=== PATIENT | female | born 1995 | race Caucasian/White ===

== ENCOUNTER 2017-08-15 23:54 | Emergency (ER) | payer OTHER, MEDICAID ==
[~2017-08-15] VITALS: Ht 170.2 cm; Wt 63.5 kg
[~2017-08-15 23:54] MED LIST: ANASPAZ0.125 MG SL; CELEXA20 MG PO; CEPHALEXIN 500500 M3 PO; IBUPROFEN 800800 M1 PO; NOHOMEMEDICATIONS
[2017-08-16] MEDS ORDERED: BUSPIRONE HCL10 MG PO (00:03)
[2017-08-16 00:20] LABS: URINE BLOOD NEGATIVE (Negative); URINE CLARITY CLEAR; URINE COLOR DARK YELLOW; URINE GLUCOSE-RANDOM NEGATIVE (Negative); URINE KETONES TRACE (Negative); URINE LEUKOCYTES-REFLEX NEGATIVE (Negative); URINE PROTEIN TRACE (Negative); URINE SPECIFIC GRAVITY >= 1.030 (1.005-1.030)
[2017-08-16 00:28] LABS: ICTOTEST (BILI CONFIRMATORY) Negative (Negative); URINE BILIRUBIN 2+ (Negative); URINE NITRITE-REFLEX POSITIVE (Negative)
[2017-08-16 00:33] LABS: ABSOLUTE EOSINOPHILS 0.1 thou/uL (0.0-0.7); ABSOLUTE LYMPHOCYTES 2.3 thou/uL (0.8-5.3); ABSOLUTE MONOCYTES 0.7 thou/uL (0.0-1.2); ABSOLUTE NEUTROPHILS 11.7 thou/uL (1.6-8.1); BASOPHILS 0.1 %; EOSINOPHILS 0.3 %; HEMATOCRIT 41.5 % (37.0-47.0); HEMOGLOBIN 14.2 gm/dL (12.0-15.0); LYMPHOCYTES 15.8 %; MCH 30.6 pg (26.0-34.0); MCHC 34.1 g/dL (28.0-37.0); MCV 89.8 fL (80.0-100.0); MPV 11.2 fl. (7.2-11.1); NUCLEATED RBCS 0 /100WBC; PLATELET COUNT* 139 thou/uL (150-400); POLYS 78.8 %; RBC 4.62 mil/uL (4.20-5.00); WBC 14.8 thou/uL (4.0-11.0)
[2017-08-16 00:33] LABS: CASTS None Seen /LPF (None Seen); CRYSTALS None Seen /LPF (None Seen); MUCUS None Seen strn/LPF (None Seen); SQUAMOUS >10 Many /LPF (0-3)
[2017-08-16 00:34] LABS: BACTERIA-REFLEX 1-9 Few /HPF (None Seen); URINE WBC-REFLEX 0-5 Rare /HPF (0-5)
[2017-08-16 00:35] LABS: URINE RBC None Seen /HPF (0-2)
[2017-08-16 00:39] LABS: CALCIUM 9.2 mg/dL (8.5-10.1); CREATININE 0.8 mg/dL (0.6-1.3); POTASSIUM 3.4 mmol/L (3.5-5.1)
[2017-08-16 00:43] LABS: ALBUMIN 3.9 g/dL (3.4-5.0); TOTAL BILIRUBIN 0.4 mg/dL (<0.1-1.0); TOTAL PROTEIN 7.2 g/dL (6.4-8.2)
[2017-08-16] MEDS ORDERED: ZOFRAN4 MG PO (02:59)
[2017-08-16] MEDS ORDERED: HYDROCODON-ACE1 EAC7 PO (02:59)
[2017-08-16 03:10] VITALS: BP 131/62
== END 2017-08-16 03:11 | disposition home or self-care (01) ==
LOC: M.ERS 23:54
PROVIDERS: Emergency Medicine
DX: K52.9 Noninfective gastroenteritis and colitis, unspecified (principal); F41.9 Anxiety disorder, unspecified; Z88.2 Allergy status to sulfonamides

== ENCOUNTER 2017-08-22 14:46 | Inpatient (IN) | payer OTHER, MEDICAID ==
[~2017-08-22] VITALS: Ht 162.6 cm; Wt 58.4 kg
[~2017-08-22 14:46] MED LIST changes: +BUSPIRONE HCL10 MG PO; +HYDROCODON-ACE1 EAC7 PO; +ZOFRAN4 MG PO
[2017-08-22 16:24] VITALS: BP 116/66
[2017-08-22 16:27] LABS: ABSOLUTE LYMPHOCYTES 1.7 thou/uL (0.8-5.3); ABSOLUTE MONOCYTES 0.5 thou/uL (0.0-1.2); ABSOLUTE NEUTROPHILS 6.9 thou/uL (1.6-8.1); BASOPHILS 0.3 %; EOSINOPHILS 0.1 %; HEMATOCRIT 41.3 % (37.0-47.0); LYMPHOCYTES 18.8 %; MCH 30.7 pg (26.0-34.0); MCV 90.2 fL (80.0-100.0); MONOCYTES 5.8 %; MPV 10.5 fl. (7.2-11.1); NUCLEATED RBCS 0 /100WBC; PLATELET COUNT* 189 thou/uL (150-400); RBC 4.58 mil/uL (4.20-5.00); WBC 9.2 thou/uL (4.0-11.0)
[2017-08-22 16:35] LABS: ALBUMIN 4.2 g/dL (3.4-5.0); CALCIUM 8.8 mg/dL (8.5-10.1); CREATININE 0.8 mg/dL (0.6-1.3); POTASSIUM 3.9 mmol/L (3.5-5.1); TOTAL BILIRUBIN 0.6 mg/dL (<0.1-1.0); TOTAL PROTEIN 7.7 g/dL (6.4-8.2)
[2017-08-22 17:28] LABS: URINE BLOOD NEGATIVE (Negative); URINE CLARITY CLEAR; URINE COLOR YELLOW; URINE GLUCOSE-RANDOM NEGATIVE (Negative); URINE LEUKOCYTES-REFLEX NEGATIVE (Negative); URINE NITRITE-REFLEX NEGATIVE (Negative); URINE PROTEIN NEGATIVE (Negative); URINE SPECIFIC GRAVITY >= 1.030 (1.005-1.030); URINE UROBILINOGEN 0.2 E.U./dl (0.2-1.0)
[2017-08-22 17:36] LABS: URINE BILIRUBIN 1+ (Negative); URINE KETONES 3+ (Negative)
[2017-08-22 17:38] LABS: ICTOTEST (BILI CONFIRMATORY) Negative (Negative)
[2017-08-22] MEDS ORDERED: CULTURELLE1 EACH PO (19:16)
[2017-08-23 00:01] VITALS: BP 120/66
[2017-08-23 08:00] VITALS: BP 110/66; BP 120/66
[2017-08-23 16:22] VITALS: BP 111/82
[2017-08-24] VITALS: BP 113/63
[2017-08-24] MEDS ORDERED: BENTYL 10 MG CA10 M1 PO (09:50)
[2017-08-24] MEDS ORDERED: AMITRIPTYLINE H25 M2 PO (09:50)
[2017-08-24] MEDS ORDERED: MIRALAX17 GM PO (09:51)
[2017-08-24 12:01] VITALS: BP 113/63
--- NOTE | 2017-08-28 16:18 | PROC ---
[address] [address] PROCEDURE REPORT Name: WILL MATIAS Room: [address] IN M.R.#: [id number] Admission: 08/22/17 Attend Phys: Negro Sanchez MD Discharge: 08/24/17 Date of : 95 Report #: [id number] THIS REPORT FOR: //name// Procedure Note Description of Procedure: Colonoscopy Report: Erythematous mucosa in the descending colon. Biopsied. The rectum, transverse colon, ascending colon and cecum are normal. Biopsied. Non bleeding internal hemorrmoids. The examination was otherwise normal. Plan: Await pathology results. Miralax 1 capful (17 grams) in 8 ounces of water daily. Use Bentyl (dicyclomine) 20 mg PO BID 30 min AC. Resume regular diet. <ELECTRONICALLY SIGNED> By: Jossie Hillman MD 08/28/17 1618 D: 1617Jossie Hillman MD /JAMEE
--- NOTE | 2017-08-30 16:59 | CON ---
[address] [address] CONSULTATION Name: POLLY,WILL JIMMY Room: [address] IN M.R.#: [id number] Admission: 08/22/17 Attend Phys: Negro Sanchez MD Discharge: 08/24/17 Date of : 95 Report #: [id number] THIS REPORT FOR: //name// CC: Negro Lucio [facility] DICTATED BY: Sia Yap BLANKET WINDER OPERATOR DATE OF SERVICE: 08/22/2017 Please note at the time of this dictation, the patient was seen and physically examined by myself. REASON FOR CONSULTATION: Abdominal pain. HISTORY OF PRESENT ILLNESS: This is a 22-year-old female who was seen in the office today by myself with chief complaint of having abdominal pain and issues with constipation and diarrhea. The patient had previously been seen in the ER on 08/15, secondary to severe abdominal pain. She underwent a CT scan at that time that showed obstipation with a large amount of stool in her colon with some wall thickening noted. At that time, her white count was 14.8, hemoglobin was 14.2, platelet was 139. The patient was then sent home after she received fluids and some pain medication at that time. She states she has continued to not feel well since that time. The patient was last seen in our office in 2014, for similar issues with abdominal pain and diarrhea. She was advised to have a colonoscopy, but she refused any endoscopy studies at that time secondary to cost and she just want to try a probiotic and due to the fact that she was , she was unable to take any Bentyl. The patient did see a psychiatrist for her severe anxiety, which also contributes to her worsening of her abdominal pain. While the patient was seen in the office today, she was extremely tearful and very emotional in discussing her abdominal pain that when she has the abdominal pain, she is traumatized by the abdominal pain to the point that she has had thoughts of hurting herself knowing that she would not do so because she has a daughter that is 4 years old that was with her there in the office. She was extremely emotional and crying because she is afraid to have more abdominal pain and that it hurts so bad. The patient recently saw her psychiatrist, was started on a new medication, buspirone 5 mg daily, which she just recently started. Prior to her visit, she had been taking Imodium on a regular basis, which she states helps with her cramping and diarrhea because she was too afraid to ever have any cramping. She states she has not had much of an appetite and just has not been eating, but her weight has been stable at this time. She denies any fever and chills prior to admission and no fever is noted from our office either. ALLERGIES: [place] [address] CONSULTATION Name: WILL MATIAS Room: [address] IN ..#: [id number] Admission: 08/22/17 Attend Phys: Negro Sanchez MD Discharge: 08/24/17 Date of : 95 Report #: [id number] MEDICATIONS FROM HOME: Include her buspirone. PAST MEDICAL HISTORY: Severe anxiety and questionable irritable bowel syndrome, mixed constipation and diarrhea. PAST SURGICAL HISTORY: Negative. SOCIAL HISTORY: and has a daughter. She has good support system. Her mother is at her bedside. SOCIAL HISTORY: Denies any alcohol, tobacco or illegal drug use at this time. REVIEW OF SYSTEMS: Twelve-point review of systems is essentially negative except what is mentioned in the HPI. PHYSICAL EXAMINATION: VITAL SIGNS: Temperature 36.8, pulse 88, respirations 18, blood pressure 116/66. HEART: Regular rate and rhythm. LUNGS: Clear. ABDOMEN: Soft, positive bowel sounds in all 4 quadrants with generalized tenderness noted throughout. LABS: Hemoglobin 14, hematocrit 41.3, white count is 9.2, platelet is 188. Sodium 138, potassium 3.9, chloride 103, CO2 of 27, BUN is 14, creatinine 0.8, GFR is 90, glucose is 101. LFTs are normal and lipase is 85. Urine is still pending. IMPRESSION: 1. Abdominal pain, likely colonic ischemia. 2. Constipation. 3. History of irritable bowel syndrome, mixed constipation and diarrhea. 4. Anxiety, severe. PLAN: 1. Clear liquid diet. 2. Prep for colon for tomorrow afternoon. 3. We will start some Flagyl 500 mg q. 8 hours. 4. Further recommendations to be made after the procedure has been performed tomorrow. Thank you for allowing us to participate in this patient's care. Please do not hesitate to call with any questions in regard to this consult. ADDENDUM [address] [address] CONSULTATION Name: WILL MATIAS Room: [address] IN M.R.#: [id number] Admission: 08/22/17 Attend Phys: Negro Sanchez MD Discharge: 08/24/17 Date of : 95 Report #: [id number] The patient was seen and examined by my partner, Dr. Hillman, who will be responsible for dictating an addendum to this consultation that was dictated by our nurse practitioner, Sia Yap. I plan on seeing the patient today, 08/23/2017, but he was able to see the patient and proceed with her colonoscopy. Please see an addendum dictated by him for further details. <ELECTRONICALLY SIGNED> By: Uriel Oneill DO 08/30/17 1659 1651 [id number] Oneill DO /nt
--- NOTE | 2017-08-30 16:59 | CON ---
[address] [address] CONSULTATION Name: WILL MATIAS Room: [address] IN M.R.#: [id number] Admission: 08/22/17 Attend Phys: Negro Sanchez MD Discharge: 08/24/17 Date of : 95 Report #: [id number] THIS REPORT FOR: //name// CC: Negro Lucio [facility] ADDENDUM GASTROENTEROLOGY CONSULTATION REFERRING PHYSICIAN: Negro Sanchez MD Addendum job number is [id number]. The patient was seen and examined by my partner, Dr. Hillman, who will be responsible for dictating an addendum to this consultation that was dictated by our nurse practitioner, Sia Yap. I plan on seeing the patient today, 08/23/2017, but he was able to see the patient and proceed with her colonoscopy. Please see an addendum dictated by him for further details. <ELECTRONICALLY SIGNED> By: Uriel Oneill DO 08/30/17 1659 1723 [id number] Oneill DO /nt
--- NOTE | 2017-09-21 13:09 | PATH ---
[address] [address] PATHOLOGY RPT PROCEDURE Name: ANGELES MATIAS Room: [address] IN M.R.#: [id number] Admission: 08/22/17 Date of : 95 Discharge: 08/24/17 Report #: [id number] Path Case #: [id number] [facility] Accession Number: [id number] . 01 Material submitted: . PART A: BIOPSY, RIGHT COLON PART B: BIOPSY, LEFT COLON MILD COLITIS . 01 Clinical history: . None provided . 02 Diagnosis: A. Right colon biopsies: - Focal fresh hemorrhage and prominent lymphoid aggregates (Peyer's patches) in otherwise normal colonic mucosa. . B. Left colon mild colitis: - Focal/minimal active colitis, negative for granulomas, viral inclusions and dysplasia (see comment). . [facility]/08/24/2017 . 02 Comment: Minimal active colitis is identified in the left colon biopsy (B) evidenced by neutrophils generally in the superficial mucosa and lamina propria without crypt abscesses and without significant basal lymphoplasmacytosis or crypt distortion present to elevate a concern for inflammatory bowel disease. Ischemic features are not apparent and there is no significant thickening of the subluminal collagen plate. These findings can be seen with oral sodium phosphate prep, acute self-limited colitis, use of NSAIDs and, considered much less likely, Crohn's disease. (TAYLOR:pit; 08/24/2017) . 02 Electronically signed: . Tao Hoyt MD, Pathologist NPI- [id number] . 01 Gross description: . A. Received in formalin labeled "Angeles Matias, right colon BX's," are 5 segments of steen soft tissue measuring 1.4 x 0.5 x 0.2 cm in aggregate dimensions and ranging from 0.2 to 0.3 cm in maximum dimension. The specimen is submitted entirely in cassette A1. . B. Received in formalin labeled "Angeles Matias, left colon, mild colitis," are 3 segments of steen soft tissue measuring 1.2 x 0.5 x 0.3 cm in aggregate dimensions and ranging from 0.1 to 0.6 cm in maximum dimension. The specimen is submitted entirely in cassette B1. ([facility]; 08/23/2017) [place] [address] PATHOLOGY RPT PROCEDURE Name: ANGELES MATIAS [facility] Room: [address] IN M.R.#: [id number] Admission: 08/22/17 Date of : 95 Discharge: 08/24/17 Report #: [id number] Path Case #: [id number] TOB/TOB . 02 CPT . 122167, [id number] Performed at: 01 [facility] [address], [place], [place] [id number] MD Lucas Avila MD Phone: [phone] Performed at: 02 [facility] [address], [place], [place] [id number] MD Tao Hoyt MD Phone: [phone]
== END 2017-08-24 12:20 | disposition home or self-care (01) | DRG 392 ==
LOC: M.3W 14:46
PROVIDERS: ADMIT Internal Medicine
PROC: 0DBM8ZX Excision of Descending Colon, Via Natural or Artificial Opening Endoscopic, Diagnostic (ICD-10-PCS; principal; 2017-08-23)
PROC: 0DBF8ZX Excision of Right Large Intestine, Via Natural or Artificial Opening Endoscopic, Diagnostic (ICD-10-PCS; principal; 2017-08-23)
DX: K58.1 Irritable bowel syndrome with constipation (principal); F41.9 Anxiety disorder, unspecified; E86.9 Volume depletion, unspecified; K64.8 Other hemorrhoids; F17.210 Nicotine dependence, cigarettes, uncomplicated; Z88.2 Allergy status to sulfonamides; Z79.2 Long term (current) use of antibiotics; Z79.899 Other long term (current) drug therapy

== ENCOUNTER 2017-11-17 15:38 | Emergency (ER) | payer OTHER ==
[~2017-11-17] VITALS: Ht 162.6 cm; Wt 57.3 kg
[~2017-11-17 15:38] MED LIST changes: +AMITRIPTYLINE H25 M2 PO; +BENTYL 10 MG CA10 M1 PO; +CULTURELLE1 EACH PO; +MIRALAX17 GM PO
[2017-11-17] MEDS ORDERED: PROZAC10 MG PO (15:48)
[2017-11-17 16:09] LABS: ABSOLUTE EOSINOPHILS 0.1 thou/uL (0.0-0.7); ABSOLUTE LYMPHOCYTES 2.3 thou/uL (0.8-5.3); ABSOLUTE MONOCYTES 0.7 thou/uL (0.0-1.2); ABSOLUTE NEUTROPHILS 6.6 thou/uL (1.6-8.1); BASOPHILS 0.3 %; EOSINOPHILS 0.8 %; HEMATOCRIT 39.5 % (37.0-47.0); HEMOGLOBIN 13.5 gm/dL (12.0-15.0); LYMPHOCYTES 23.8 %; MCH 30.7 pg (26.0-34.0); MCHC 34.3 g/dL (28.0-37.0); MCV 89.6 fL (80.0-100.0); MPV 9.9 fl. (7.2-11.1); NUCLEATED RBCS 0 /100WBC; PLATELET COUNT* 187 thou/uL (150-400); POLYS 68.1 %; RBC 4.41 mil/uL (4.20-5.00); RDW-CV 12.6 % (10.5-14.5); WBC 9.7 thou/uL (4.0-11.0)
[2017-11-17 16:25] LABS: CALCIUM 8.2 mg/dL (8.5-10.1); CREATININE 0.7 mg/dL (0.6-1.3); POTASSIUM 3.6 mmol/L (3.5-5.1)
[2017-11-17 16:29] LABS: ALBUMIN 3.7 g/dL (3.4-5.0); TOTAL BILIRUBIN 0.3 mg/dL (<0.1-1.0); TOTAL PROTEIN 7.5 g/dL (6.4-8.2)
[2017-11-17 16:35] LABS: URINE BILIRUBIN NEGATIVE (Negative); URINE BLOOD NEGATIVE (Negative); URINE CLARITY CLEAR; URINE COLOR YELLOW; URINE GLUCOSE-RANDOM NEGATIVE (Negative); URINE KETONES TRACE (Negative); URINE LEUKOCYTES-REFLEX NEGATIVE (Negative); URINE NITRITE-REFLEX NEGATIVE (Negative); URINE PROTEIN NEGATIVE (Negative); URINE SPECIFIC GRAVITY 1.025 (1.005-1.030); URINE UROBILINOGEN 0.2 E.U./dl (0.2-1.0)
[2017-11-17 17:35] VITALS: BP 120/71
--- NOTE | 2017-11-18 10:59 | EKG ---
[place] [address] ELECTROCARDIOGRAM REPORT Name: POLLYWILL JIMMY Room: [facility]#: [id number] Admission: 11/17/17 Attend Phys: Discharge: 11/17/17 Date of : 95 Report #: [id number] THIS REPORT FOR: //name// [facility] ED Test Date: 2017-11-17 Test Time: 15:44:01 Pat Name: WILL MATIAS Department: Room: Gender: F Phys Ther: Ibeth JOHNSON : 1995 Requested By: Jalen Guadalupe Order Number: [id number] MD: Ok Lopez Measurements Intervals [place] Rate: 116 P: 56 MI: 124 QRS: 45 QRSD: 85 T: 14 QT: 315 QTc: 438 Interpretive Statements Sinus tachycardia No previous ECG available for comparison Electronically Signed On 11-18-2017 10:59:41 CDT by Ok Lopez [email or web address] <ELECTRONICALLY SIGNED> By: Justin Lopez MD, [facility] 11/18/17 1059 1544 1544 Justin Lopez MD, FACKristi /EPI
== END 2017-11-17 17:36 | disposition home or self-care (01) ==
LOC: M.ERS 15:38
PROVIDERS: Nurse Practitioner Family
DX: L50.9 Urticaria, unspecified (principal); T43.225A Adverse effect of selective serotonin reuptake inhibitors, initial encounter; F41.9 Anxiety disorder, unspecified; Z88.2 Allergy status to sulfonamides; Y92.89 Other specified places as the place of occurrence of the external cause

== ENCOUNTER 2019-07-05 22:49 | Emergency (ER) | payer OTHER, MEDICAID ==
[~2019-07-05] VITALS: Ht 162.6 cm; Wt 55.8 kg
[~2019-07-05 22:49] MED LIST changes: +PROZAC10 MG PO
[2019-07-05] MEDS ORDERED: ZOLOFT 50 MG TA50 M1 PO (23:11)
[2019-07-05 23:27] LABS: URINE BILIRUBIN NEGATIVE (Negative); URINE BLOOD 2+ (Negative); URINE CLARITY CLEAR; URINE COLOR YELLOW; URINE GLUCOSE-RANDOM NEGATIVE (Negative); URINE KETONES NEGATIVE (Negative); URINE LEUKOCYTES-REFLEX NEGATIVE (Negative); URINE NITRITE-REFLEX NEGATIVE (Negative); URINE PROTEIN NEGATIVE (Negative); URINE SPECIFIC GRAVITY 1.025 (1.005-1.030); URINE UROBILINOGEN 0.2 E.U./dl (0.2-1.0)
[2019-07-05 23:29] LABS: ABSOLUTE BASOPHILS 0.1 thou/uL (0.0-0.2); ABSOLUTE EOSINOPHILS 0.1 thou/uL (0.0-0.7); ABSOLUTE LYMPHOCYTES 3.3 thou/uL (0.8-5.3); ABSOLUTE MONOCYTES 0.8 thou/uL (0.0-1.2); ABSOLUTE NEUTROPHILS 9.1 thou/uL (1.6-8.1); BASOPHILS 0.6 %; EOSINOPHILS 0.9 %; HEMATOCRIT 34.5 % (37.0-47.0); HEMOGLOBIN 12.1 gm/dL (12.0-15.0); LYMPHOCYTES 24.5 %; MCH 30.8 pg (26.0-34.0); MCHC 35.2 g/dL (28.0-37.0); MCV 87.5 fL (80.0-100.0); MONOCYTES 6.2 %; MPV 10.7 fl. (7.2-11.1); NUCLEATED RBCS 0 /100WBC; PLATELET COUNT* 163 thou/uL (150-400); POLYS 67.8 %; RBC 3.94 mil/uL (4.20-5.00); RDW-CV 13.1 % (10.5-14.5); WBC 13.4 thou/uL (4.0-11.0)
[2019-07-05 23:37] LABS: CALCIUM 8.6 mg/dL (8.5-10.1); CREATININE 0.5 mg/dL (0.6-1.3); POTASSIUM 3.5 mmol/L (3.5-5.1)
[2019-07-06 00:23] LABS: CASTS None Seen /LPF (None Seen); SQUAMOUS 0-3 Few /LPF (0-3)
[2019-07-06 00:24] LABS: BACTERIA-REFLEX 1-9 Few /HPF (None Seen); CRYSTALS None Seen /LPF (None Seen); URINE RBC 3-10 Few /HPF (0-2); URINE WBC-REFLEX None Seen /HPF (0-5)
[2019-07-06 00:31] VITALS: BP 137/67
== END 2019-07-06 00:31 | disposition home or self-care (01) ==
LOC: M.ERS 22:49
PROVIDERS: Emergency Medicine
DX: O26.892 Other specified pregnancy related conditions, second trimester (principal); N93.0 Postcoital and contact bleeding; F41.9 Anxiety disorder, unspecified; Z3A.18 18 weeks gestation of pregnancy; Z88.2 Allergy status to sulfonamides; Z88.8 Allergy status to other drugs, medicaments and biological substances

== ENCOUNTER 2019-09-26 17:46 | Emergency (ER) | payer OTHER, MEDICAID ==
[~2019-09-26] VITALS: Ht 162.6 cm; Wt 61.7 kg
[~2019-09-26 17:46] MED LIST changes: +ZOLOFT 50 MG TA50 M1 PO
[2019-09-26] MEDS ORDERED: MIRALAX119 GM PO (18:01)
[2019-09-26 18:15] VITALS: BP 115/74
== END 2019-09-26 18:27 | disposition left against medical advice (07) ==
LOC: M.ERS 17:46
DX: O26.893 Other specified pregnancy related conditions, third trimester (principal); R10.30 Lower abdominal pain, unspecified; F41.9 Anxiety disorder, unspecified; Z3A.30 30 weeks gestation of pregnancy; Z88.2 Allergy status to sulfonamides; Z88.8 Allergy status to other drugs, medicaments and biological substances